=== PATIENT | male | born 1995 | race Caucasian/White ===

== ENCOUNTER 2017-03-31 16:33 | Emergency (ER) | payer OTHER ==
[~2017-03-31] VITALS: Ht 185.4 cm; Wt 72.7 kg
[2017-03-31 16:37] VITALS: TEMP 36.8; Ht 185.4 cm; Wt 72.7 kg
[2017-03-31] MEDS ORDERED: BUPR8SUB19 PO (16:52)
--- NOTE | 2017-03-31 17:23 | DIAGNOSTIC IMAGING REPORT ---
RIGHT ANKLE MIN 3 VIEWS ROUTINE CLINICAL HISTORY: Right ankle pain following injury. COMPARISON: Right ankle radiographs December 21, 2007. FINDINGS: Alignment of the right ankle is anatomic. Talar dome is intact. There is no acute fracture. IMPRESSION: No acute fracture or dislocation of the right ankle. Electronically signed by: Sp Borrego M.D. 03/31/2017 5:21 PM Dictated Date/Time: 03/31/2017 5:12 PM
[2017-03-31 18:34] VITALS: BP 115/57; PULSE 57; O2SAT 98
--- NOTE | 2017-03-31 18:34 | EMERGENCY ROOM VISIT NOTE ---
ED Visit Note First contact with patient: 16:41 CHIEF COMPLAINT: Ankle pain HISTORY OF PRESENT ILLNESS: This 21 year old male patient presents to the emergency department after sustaining an injury to the right ankle and foot after a heavy box fell onto his ankle yesterday night. The patient complains of pain along the inside of the ankle. The patient does not have pain of the foot. The patient rates the pain as dull and 5/10. The patient is able to bear weight on the foot. Constant pain, worse with movement, weight bearing, and the dependent position. No knee pain, the patient is able to move their toes. No numbness or weakness of the foot, no laceration. The patient has not had a previous fracture to this ankle. The patient has taken nothings for the pain. The patient denies any other injury. REVIEW OF SYSTEMS: A 6 system review of systems was completed with positives and pertinent negatives listed in the HPI. ALLERGIES: No known allergies MEDICATIONS: No chronic medications PMH: No chronic medical disease SOCIAL HISTORY: Employed and lives locally PHYSICAL EXAM: Vital Signs: Reviewed Nurse's notes, vital signs stable. GENERAL : White male, no acute distress, but appears in pain, well-developed, well- nourished. MENTAL STATUS: Alert, oriented to person place and time, and cooperative. MUSCULOSKELETAL: The right ankle is swollen and tender over the medial malleolus, but the skin is intact and there is no ligamentous instability. There is no fifth metatarsal tenderness. There is no tenderness over the rest of the foot. There is no calf or tibia/fibular tenderness. There is no visual deformity. The foot and toes are warm and well-perfused. Dorsalis pedis pulse 2+. Sensation to pain and light touch is intact. Capillary refill less than 2 seconds. RIGHT ANKLE MIN 3 VIEWS ROUTINE CLINICAL HISTORY: Right ankle pain following injury. COMPARISON: Right ankle radiographs December 21, 2007. FINDINGS: Alignment of the right ankle is anatomic. Talar dome is intact. There is no acute fracture. IMPRESSION: No acute fracture or dislocation of the right ankle. EMERGENCY DEPARTMENT COURSE: Physical exam and history were performed. Nursing notes and EMR were reviewed. The patient appears to have suffered injury to his right ankle after dropping a box on himself last night. X-rays were obtained and do not reveal fracture or dislocation. The patient will be given a gel ankle splint and crutches. He is to use [id number] analgesics. He is to follow-up with orthopedics if symptoms persist over the next few days. He was otherwise invited active the emergency department with a new, worsening, or concerning symptoms. Current/Historical Medications Scheduled Buprenorphine Hcl (Subutex), 8 MG PO BID Allergies Coded Allergies: No Known Allergies (Unverified , 07/12/15) Vital Signs Date Time Temp Pulse Resp B/P (MAP) Pulse Ox O2 Delivery O2 Flow Rate FiO2 03/31/17 16:37 36.8 72 18 116/64 98 Room Air Departure Information Impression Primary Impression: Injury of right ankle Dispostion Home / Self-Care Condition GOOD Referrals Teddy Guerra MD Forms HOME CARE DOCUMENTATION FORM, Work Instructions, Additional Instructions: Patient seen and evaluated today in the emergency department for medica care. Must be allowed to use crutches at work or not stand at work unti 04/05/2017. IMPORTANT VISIT INFORMATION Patient Instructions [facility] Additional Instructions You were seen and evaluated today on an emergency basis only. This is not a substitute for, or an effort to provide, complete comprehensive medical care. It is not possible to recognize and treat all injuries or illnesses in a single emergency department visit. For this reason it is recommended that you followup with [facility] , Dr. Guerra's office, if you have ongoing or persistent symptoms next week. For baseline pain relief you may alternate ibuprofen and acetaminophen every 4 hours for pain control. Take 600 mg ibuprofen (Advil) and then 4 hours later take 1000 mg acetaminophen (Tylenol). Do not take more than 3000 mg acetaminophen in a single day. Use your gel ankle splint and crutches for the next 4-5 days then slowly advance activity. If you have persistent pain please follow-up with orthopedics. You are welcome to return to the emergency department anytime with new, worsening, or concerning symptoms. Work Instructions Additional Work Instructions: Patient seen and evaluated today in the emergency department for medical care. Must be allowed to use crutches at work or not stand at work until 04/05/2017.
== END 2017-03-31 18:35 | disposition home or self-care (01) ==
LOC: C.EDB 16:35 → C.EDD 18:35
DX: S99.911A Unspecified injury of right ankle, initial encounter (principal); W20.8XXA Other cause of strike by thrown, projected or falling object, initial encounter